=== PATIENT | female | born 2000 | race Two or more races ===

== ENCOUNTER 2024-12-17 18:27 | Inpatient (IN) | payer MEDICAID ==
[~2024-12-17] VITALS: Ht 165.1 cm; Wt 66.7 kg
[2024-12-17] MEDS ORDERED: ZOLPIDEM TARTRATE 10 MG TABLET PO PRN (19:00)
[2024-12-17] MEDS ORDERED: haloperidoL 5 MG TABLET PO PRN (19:00)
[2024-12-17 19:45] LABS: GLUCOMETER DEV NAME(LOC) POC.BV; POC SARS-COV2 AG, FIA NEGATIVE (NEGATIVE)
[2024-12-17 20:47] VITALS: BP 137/89; PULSE 92; RESP 17; TEMP 97.7; O2SAT 97
[2024-12-17] MEDS: LORazepam 2 MG TABLET PO PRN (23:45)
[2024-12-18 06:45] VITALS: BP 138/90; PULSE 99; RESP 18; TEMP 97.8; O2SAT 99
[2024-12-18 08:55] VITALS: RESP 18
[2024-12-18 10:03] LABS: BASOPHILS % (AUTO) 0.1 % (0.0-2.0); EOSINOPHILS % (AUTO) 0 % (1.0-6.0); HEMATOCRIT 38.9 % (36-46); LYMPHOCYTES # (AUTO) 0.9 K/uL (1.0-4.8); LYMPHOCYTES % (AUTO) 10.1 % (22.0-44.0); MEAN CORPUSCULAR HEMOGLOBIN 28.8 pg (26.0-34.0); MEAN CORPUSCULAR HGB CONC 33.4 G/dL (31.0-37.0); MEAN CORPUSCULAR VOLUME 86 fL (80-100); MONOCYTES # (AUTO) 0.7 K/uL (0.1-1.0); MONOCYTES % (AUTO) 7.7 % (2.0-9.0); NEUTROPHILS # (AUTO) 7.6 K/uL (1.8-7.7); NEUTROPHILS % (AUTO) 82.1 % (40.0-70.0); PLATELET COUNT (AUTO) 266 K/uL (150-450); RED BLOOD CELL COUNT(AUTO) 4.51 MIL/uL (4.00-5.20); RED CELL DISTRIBUTION WIDTH 13.5 % (11.5-14.5); WHITE BLOOD COUNT (AUTO) 9.3 K/uL (4.5-11.0)
[2024-12-18 10:16] LABS: HEMOGLOBIN A1C 4.9 % (3.8-5.6)
[2024-12-18 11:04] LABS: ALCOHOL, URINE DRUG SCREEN NEGATIVE (NEGATIVE); AMPHET/METH SCREEN,URINE NEGATIVE (NEGATIVE); BARBITURATE SCREEN, URINE NEGATIVE (NEGATIVE); BENZODIAZEPINES SCREEN,URINE NEGATIVE (NEGATIVE); CANNABINOID SCREEN,URINE POSITIVE (NEGATIVE); COCAINE SCREEN,URINE NEGATIVE (NEGATIVE); METHADONE SCREEN, URINE NEGATIVE (NEGATIVE); OPIATE SCREEN,URINE NEGATIVE (NEGATIVE); PHENCYCLIDINE SCREEN,URINE NEGATIVE (NEGATIVE)
[2024-12-18 11:18] LABS: APPEARANCE,URINE HAZY (CLEAR); BILIRUBIN,URINE NEGATIVE (NEGATIVE); COLOR,URINE YELLOW (YELLOW); GLUCOSE, URINE (UA) TRACE mg/dL (NEGATIVE); KETONES,URINE 80-100 mg/dL (NEGATIVE); LEUKOCYTE ESTERASE ,URINE NEGATIVE (NEGATIVE); NITRATE,URINE NEGATIVE (NEGATIVE); OCCULT BLOOD,URINE TRACE (NEGATIVE); PH,URINE 6.5 (5.0-8.0); PH,URINE DRUG SCREEN 6.5 (5.0-8.0); PROTEIN,URINE 30-70 mg/dL (NEGATIVE); SPECIFIC GRAVITIY, URINE 1.016 (1.003-1.030); UROBILINOGEN,URINE <=1.0 mg/dL (<=1.0)
[2024-12-18 11:21] LABS: ALANINE AMINOTRANSFERASE 21 U/L (12-78); ALBUMIN 3.8 g/dL (3.4-5.0); ALKALINE PHOSPHATASE 64 U/L (46-116); ASPARTATE AMINOTRANSFERASE 24 U/L (15-37); CALCIUM, TOTAL 9.5 mg/dL (8.8-10.5); CHOL/HDL RATIO 1.7 (3.9-5.7); CHOLESTEROL 162 mg/dL (131-200); CREATININE 0.67 mg/dL (0.60-1.30); GLOMERULAR FILTR. RATE CALC > 60 mL/min (>60); GLUCOSE,RANDOM 90 mg/dL (70-110); HDL CHOLESTEROL 98 mg/dL (40-60); LDL CHOL (CALC.) 50 mg/dL (0-130); THYROID STIMULATING HORMONE 1.19 uIU/mL (0.36-3.74); TRIGLYCERIDES 72 mg/dL (15-150); UREA NITROGEN, BLOOD 7 mg/dL (7-18)
[2024-12-18 11:56] LABS: BACTERIA,URINE None Seen /HPF (None Seen); RBC,URINE 0-2 /HPF (0-2); WBC,URINE None Seen /HPF (0-5)
[2024-12-18] MEDS ORDERED: NICOTINE 14 MG/24 HOUR PATCH TD PRN (14:15)
[2024-12-18] MEDS ORDERED: CloNIDine HCL 0.1 MG TABLET PO PRN (14:15)
[2024-12-18] MEDS ORDERED: MAGNESIUM HYDROXIDE SUSPENSION 30 ML UDCUP PO PRN (14:15)
[2024-12-18] MEDS ORDERED: DOCUSATE SODIUM 100 MG CAPSULE PO PRN (14:15)
[2024-12-18] MEDS ORDERED: LOPERAMIDE HCL 2 MG CAPSULE PO PRN (14:15)
[2024-12-18] MEDS ORDERED: IBUPROFEN 400 MG TABLET PO PRN (14:15)
[2024-12-18] MEDS ORDERED: ONDANSETRON 4 MG TABLET PO PRN (14:15)
[2024-12-18] MEDS ORDERED: ACETAMINOPHEN 325 MG TABLET PO PRN (14:15)
[2024-12-18] MEDS ORDERED: ALBUTEROL SULFATE HFA 90 MCG/PUFF 8 GM INHALER IH PRN (14:15)
[2024-12-18] MEDS ORDERED: GuaiFENesin/D-METHORPHAN [SUGAR-FREE] 200-20MG/10 ML SYRUP UDCUP PO PRN (14:15)
[2024-12-18] MEDS ORDERED: MAG HYDROX/ALUMINUM HYD/SIMETH ES 30 ML SUSPENSION UDCUP PO PRN (14:15)
[2024-12-18 14:39] LABS: ANION GAP 13 mmol/L (8-16); CARBON DIOXIDE 22 mmol/L (22-29); CHLORIDE 104 mmol/L (98-107); POTASSIUM 3.6 mmol/L (3.5-5.1); SODIUM SERUM 139 mmol/L (136-145)
[2024-12-18 14:46] LABS: HCG,QUANTITATIVE < 1 mIU/mL (0-6)
[2024-12-18] MEDS: LamoTRIgine 25 MG TABLET PO SCH (16:12)
[2024-12-18 20:02] VITALS: BP 141/98; PULSE 79; RESP 16; TEMP 97.5; O2SAT 97
[2024-12-19 09:18] LABS: CHOL/HDL RATIO 1.7 (3.9-5.7); THYROID STIMULATING HORMONE 1.49 uIU/mL (0.36-3.74)
[2024-12-19 09:25] VITALS: BP 133/98; PULSE 103; RESP 18; TEMP 97.8; O2SAT 97
[2024-12-19 12:25] VITALS: PULSE 95
[2024-12-19 20:14] VITALS: BP 128/91; PULSE 94; RESP 18; TEMP 97.7; O2SAT 98
[2024-12-20 08:30] VITALS: BP 137/95; PULSE 109; RESP 17; TEMP 97.7; O2SAT 97
[2024-12-20 11:41] VITALS: PULSE 87
[2024-12-20 20:18] VITALS: BP 148/101; PULSE 98; RESP 17; TEMP 97.6; O2SAT 98
[2024-12-21 08:13] VITALS: BP 127/95; PULSE 98; RESP 18; TEMP 97.4; O2SAT 98
[2024-12-21] MEDS ORDERED: SERT-439 PO (09:12)
[2024-12-21] MEDS ORDERED: ARIP2TAB27 PO (09:12)
[2024-12-21] MEDS: SERTRALINE HCL 50 MG TABLET PO SCH (09:56)
[2024-12-21] MEDS: ARIPiprazole 5 MG TABLET PO SCH (09:56)
[2024-12-21 20:47] VITALS: BP 141/98; PULSE 63; RESP 16; TEMP 97; O2SAT 99
[2024-12-22 08:52] VITALS: BP 147/98; PULSE 80; RESP 18; TEMP 97.3; O2SAT 98
[2024-12-22] MEDS: PETROLATUM,WHITE 28 GM JELLY TP PRN (13:33)
[2024-12-22 20:46] VITALS: BP 136/100; PULSE 100; RESP 18; TEMP 97.3; O2SAT 99
[2024-12-23 08:23] VITALS: BP 138/95; PULSE 99; RESP 16; TEMP 97.2; O2SAT 99
[2024-12-23 22:59] VITALS: BP 147/97; PULSE 95; RESP 18; TEMP 97.9; O2SAT 99
[2024-12-24 08:32] VITALS: BP 138/95; PULSE 118; RESP 17; TEMP 98.4; O2SAT 96
[2024-12-24] MEDS ORDERED: ARIP5TAB37 PO (12:44)
[2024-12-24] MEDS ORDERED: LAMO25TB3 PO (12:45)
[2024-12-24] MEDS ORDERED: LAMO25TA36 PO (12:47)
== END 2024-12-24 16:28 | disposition home or self-care (01) | DRG 753 ==
LOC: B3A 18:56
PROVIDERS: ADMIT Psychiatry & Neurology Child & Adolescent Psychiatry; ATTEND Psychiatry & Neurology Child & Adolescent Psychiatry
PROC: GZ56ZZZ Individual Psychotherapy, Supportive (ICD-10-PCS; 2024-12-19)
PROC: GZHZZZZ Group Psychotherapy (ICD-10-PCS; principal; 2024-12-20)
PROC: GZ52ZZZ Individual Psychotherapy, Cognitive (ICD-10-PCS; 2024-12-20)
DX: F31.5 Bipolar disorder, current episode depressed, severe, with psychotic features (principal); D64.9 Anemia, unspecified; Z20.822 Contact with and (suspected) exposure to COVID-19; I10 Essential (primary) hypertension; F12.10 Cannabis abuse, uncomplicated; Z79.899 Other long term (current) drug therapy
CPT/HCPCS: 80053; 80061; 80307; 81001; 83036; 84439; 84443; 84702; 85025; 86592